=== PATIENT | female | born 1940 | race Caucasian/White ===

== ENCOUNTER 2025-04-19 11:00 | Outpatient (RCR) | payer MEDICARE, SELFPAY | END 2025-05-18 08:24 | disposition home or self-care (01) | LOC: HO.PTCHIC 11:00 | PROVIDERS: PCP Internal Medicine; Visit Provider Internal Medicine | DX: M25.511 Pain in right shoulder (principal); M25.512 Pain in left shoulder | CPT/HCPCS: 97110; 97162 ==